=== PATIENT | female | born 1940 | race Caucasian/White ===

== ENCOUNTER 2016-08-23 16:28 | Emergency (ER) | payer MEDICARE, MEDICAID ==
[~2016-08-23] VITALS: Wt 64.9 kg
[~2016-08-23 16:28] MED LIST: ANTACID1 CT2 PO; ASPIRIN81 MG PO; ATIVAN1 MG PO; Bactrim Ds 8001 TAB PO; CARBAMAZEPINE200 MG PO; CEFUROXIME AXE250 MG PO; CEPHALEXIN500 M1 PO; CYMBALTA30 MG PO; DOCUSATE CALCI240 MG PO; DOXINATE PO; ERYTHROMYCIN OPH1 GM OPH; EXEL13.31 T; EXELON4.6 MG/24 T; FERROUS SULFAT325 M1 PO; FORTICAL200 IU/ACT NS; LEVOTHYROXIN0.075 MG PO; NAMENDA XR28 MG PO; NAMENDA10 MG PO; NATURAL TEARS OU; NEUDEXT PO; NUEDEXTA PO; OCUFLOX 0.3% 5 M5 ML OP; OYSTER CALCIUM1 TA3 PO; SYNTHROID25 MCG PO; TOBRADEX 0.3-0.15 ML OPH; VITAMIN B121000 MC2 PO; VITAMIN D5000 UNIT PO; ZYPREXA2.5 MG PO; ZYPREXA5 MG PO
[2016-08-23 17:34] LABS: BASO % 0.2 % (0.0-1.0); EOS # 0.2 10*3/uL (0.0-0.4); EOS % 2.7 % (1.0-4.0); HEMATOCRIT 35.4 % (37.0-47.0); HEMOGLOBIN 11.2 g/dl (12.0-16.0); LYMPH # 1.6 10*3/uL (1.3-4.4); LYMPH % 19.5 % (27.0-41.0); MEAN CELL VOLUME 98.6 fl (81.0-99.0); MEAN CORPUSCULAR HGB 31.2 pg (27.0-31.0); MEAN CORPUSCULAR HGB CONC 31.6 g/dl (33.0-37.0); MEAN PLATELET VOLUME 9.2 fl (9.6-12.3); MONO # 0.8 10*3/uL (0.1-1.0); MONO % 9.6 % (3.0-9.0); NEUT # 5.7 10*3/uL (2.3-7.9); NEUT % 67.6 % (47.0-73.0); PLATELET COUNT AUTOMATED 304 10*3/uL (130-400); RED BLOOD COUNT 3.59 10*6/uL (4.10-5.10); RED CELL DISTRI WIDTH 13.9 % (0-14.5); WHITE BLOOD COUNT 8.4 10*3/uL (4.8-10.8)
[2016-08-23 17:50] LABS: ALBUMIN 3.1 gm/dl (3.1-4.5); ALKALINE PHOSPHATASE 81 U/L (45-117); BILIRUBIN, TOTAL 0.3 mg/dl (0.2-1.0); BUN 32 mg/dl (7-24); CARBON DIOXIDE 28 mmol/L (21-32); CHLORIDE 105 mmol/L (98-107); EST GLOM FILT AFRICAN AMERICAN > 60 ml/min; GLUCOSE 97 mg/dL (65-99); POTASSIUM 4.7 mmol/L (3.5-5.1); SGOT/AST 30 IU/L (3-35); SGPT/ALT 42 U/L (12-78); SODIUM 138 mmol/L (136-145); TOTAL PROTEIN 8.4 gm/dL (6.4-8.2)
[2016-08-23 19:14] LABS: BILIRUBIN NEGATIVE (NEGATIVE); BLOOD TRACE-INTACT (NEGATIVE); CLARITY CLEAR (CLEAR); COLOR YELLOW (YELLOW); GLUCOSE NEGATIVE (NEGATIVE); KETONE NEGATIVE (NEGATIVE); LEUKO ESTERASE NEGATIVE (NEGATIVE); NITRITE NEGATIVE (NEGATIVE); PH 6.5 (5.0-9.0); PROTEIN TRACE (NEGATIVE); UROBILINOGEN 0.2 E.U./dl (0.2-1.0)
[2016-08-23 19:32] LABS: BACTERIA TRACE; URINE REFLEX COMMENT NO (NO); WBC 0-2 wbc/hpf (0-5)
== END 2016-08-23 20:06 | disposition home or self-care (01) ==
LOC: ED 16:28
PROVIDERS: Registered Nurse
DX: R41.82 Altered mental status, unspecified (principal); F03.90 Unspecified dementia, unspecified severity, without behavioral disturbance, psychotic disturbance, mood disturbance, and anxiety; Z87.891 Personal history of nicotine dependence; Z90.710 Acquired absence of both cervix and uterus; Z90.49 Acquired absence of other specified parts of digestive tract; Z79.899 Other long term (current) drug therapy

== ENCOUNTER → 2016-09-17 | Outpatient (CLI) | payer MEDICARE, MEDICAID ==
--- NOTE | ~2016-09-17 | WRIGHTHP ---
[place], [place] PATIENT HISTORY AND PHYSICAL EXAM NAME: ANATOLIY BAKER [facility] #: [id number] UNIT #: [id number] ROOM: DOCTOR: CAMILA GrandaTRI BIRTHDATE: [birth year] DOS: 09/17/2016 CHIEF COMPLAINT: Ulcer of the left heel. HISTORY OF PRESENT ILLNESS: This is a 76-year-old female with a history of dementia who comes from home, she is brought in by her daughters who noticed a blister on her left heel present about 2 weeks ago, she then noticed after she got out of bed and it had actually opened up and broken since then, her daughter is a nurse's aide and has already trying to prop up her legs in order to keep her heels floated at this time. She offers no other specific complaints regarding the wound. There is no history of vascular disease of the legs that they are aware of. PAST MEDICAL HISTORY: Intracranial hemorrhage, hypothyroidism, Alzheimer's dementia, history of depression, frequent urinary tract infections, multiple TIAs, old strokes. PAST SURGICAL HISTORY: She is status post hysterectomy, bilateral cataract extractions, bilateral leg biopsy, brain bleed, old strokes 2013, history of Staph, lethargy. SOCIAL HISTORY: She is a former smoker, quit 30 years ago and is and is now being cared for by her family. She does not ambulate on her own. FAMILY HISTORY: Positive for heart disease in her mother and stroke in her father and mother. ALLERGIES: No known drug allergies. MEDICATIONS: As follows: Colace 100 mg as needed daily, erythromycin topical ointment b.i.d., low dose aspirin 81 daily, Synthroid 50 mcg daily and vitamin D3 of 2000 unit tablets twice a day. PHYSICAL EXAMINATION: GENERAL: This is an elderly female who is nonverbal and in no acute distress. VITAL SIGNS: Stable. Temperature is 97.7, pulse is 94, respirations are 20, and blood pressure is 138/88. She is in no acute distress, slightly pale to examination. NECK: There is no JVD. LUNGS: Clear to auscultation anteriorly. CARDIOVASCULAR: S1, S2 regular rate and rhythm. Systolic murmur appreciable. ABDOMEN: Soft. EXTREMITIES: She has trace edema bilaterally. VASCULAR: Her pedal pulses are palpable. She has got good capillary refill. Her toes are warm. She has a wound located on the left heel that is measuring 2 cm x 2 cm x 0.1 cm. Her KAZ was 0.94 on the left and 1 on the right. As far as her wound goes it is clean and it is a stage 2 open ulcer of the left heel and there is no necrotic tissue present. No debridement was done. ASSESSMENT AND PLAN: Stage 2 pressure ulcer of the left heel, we will use [place], [place] PATIENT HISTORY AND PHYSICAL EXAM NAME: ANATOLIY BAKER UNIT #: [id number] ROOM: DOCTOR: CAMILA Granda,TRI BIRTHDATE: [birth year] Puracol and a foam bandage and have her change it every other day. She is to follow up in the Wound Clinic in 1 week. We will encourage offloading and her daughter already seems to be aware of the fact that she should not have any pressure on this wound and a heel lift boot will be given to the patient, follow up in one week. TRI JENSEN MD CM:HISPHYS:PATIENT HISTORY AND PHYSICAL EXAMINATION [id number] TRI JENSEN M.D. 09/18/16 1022 interface
== END ==
LOC: WOUNDCARE 02:07
DX: L89.622 Pressure ulcer of left heel, stage 2 (principal); E03.9 Hypothyroidism, unspecified; Z86.73 Personal history of transient ischemic attack (TIA), and cerebral infarction without residual deficits; Z87.891 Personal history of nicotine dependence; Z90.710 Acquired absence of both cervix and uterus

== ENCOUNTER → 2016-09-24 | Outpatient (CLI) | payer MEDICARE, MEDICAID ==
--- NOTE | ~2016-09-24 | PR ---
[place], [place] PROGRESS NOTE NAME: URBANOEDYTABURGESSANATOLIY UNIT #: [id number] ROOM: DOCTOR: TRI JENSEN M.D. BIRTHDATE: [birth year] DOS: 09/24/2016 ROUTINE WOUND CARE FOLLOWUP SUBJECTIVE: The patient was seen last week for a stage 2 pressure ulcer of the left heel. CHIEF COMPLAINT: Ulcer of the left heel. HISTORY OF PRESENT ILLNESS: A 76-year-old female with a history of dementia, lives at home, has had a wound present for 3 weeks now. She is fairly debilitated. The family reports no specific complaints. They were using a heel lift to try to help alleviate some of the pressure. However, it did cause a small blistered area on the medial ankle that they noticed. It has not broken open yet and it is just filled with some clear serous fluid. There is no sign of infection. OBJECTIVE: VITAL SIGNS: Stable. Temperature is 97.7, pulse is 92, respirations 20, blood pressure is 126/80. EXTREMITIES: The wound is measuring smaller at 1.3 x 0.6 x 0.1, it is clean. It is epithelializing. There is no necrotic tissue present. No debridement was done. There is a very small intact blister on the medial ankle that is approximately 0.4 cm in length x 1 cm in width. It is not open, it is filled with clear serous fluid. This was not broken. ASSESSMENT AND PLAN: Stage 2 pressure ulcer of the left heel. It is definitely improving with the current dressing which is collagen and a foam. We will discontinue the use of the heel device as it is causing new areas of concern, so we do not want them to use that, just to use pillows to keep the heel floated for now. Followup is in 2 weeks. The family does have a difficult time trying to get their mother here for wound care appointment. The wound and there is no sign of infection so she can come back in 2 weeks rather than 1 week. [place], [place] PROGRESS NOTE NAME: URBANOANATOLIY GARCIAS UNIT #: [id number] ROOM: DOCTOR: TRI JENSEN M.D. BIRTHDATE: [birth year] TRI JENSEN MD CM:JAYSHREE [id number] TRI JENSEN M.D. 09/25/16 0944 interface
== END ==
LOC: WOUNDCARE 00:53
DX: L89.622 Pressure ulcer of left heel, stage 2 (principal); F03.90 Unspecified dementia, unspecified severity, without behavioral disturbance, psychotic disturbance, mood disturbance, and anxiety

== ENCOUNTER → 2016-10-08 | Outpatient (CLI) | payer MEDICARE, MEDICAID ==
--- NOTE | ~2016-10-08 | PR ---
[place], [place] PROGRESS NOTE [id number] UNIT #: [id number] ROOM: DOCTOR: TRI JENSEN M.D. BIRTHDATE: [birth year] DOS: 10/08/2016 CHIEF COMPLAINT: Heel ulcer. HISTORY OF PRESENT ILLNESS: This is a 76-year-old female who has been having a wound on her left heel for a few weeks. It is a stage 2 pressure ulcer. The patient is fairly debilitated, is completely dependent on all ADLs by her family who takes care of her. They brought her in today for followup wound care visit. It looks like the wound is healed. Last time she was here, she had a small blister that was felt to be started by the heel device that she was using, so we discontinued the heel offloading device, so we did not want to cause any new issues, but that area also seems to be healing nicely and healed. No other specific complaints are noted. OBJECTIVE: VITAL SIGNS: Stable. Temperature is 98.1, pulse of 90, respirations 20, blood pressure is 128/82. WOUND EXAM: The wound appears healed. There is no open area. No signs of cellulitis and no tenderness. ASSESSMENT AND PLAN: Stage 2 pressure ulcer, which is healed, we will discharge the patient from the Wound Clinic. We advised to continue to offload and to keep the heel moist and moisturized with Aquaphor as needed. TRI JESNEN MD CM:PNTRANS [phone] TRI JENSEN M.D. 10/09/16 0025 interface
== END ==
LOC: WOUNDCARE 03:37
DX: L89.622 Pressure ulcer of left heel, stage 2 (principal); F03.90 Unspecified dementia, unspecified severity, without behavioral disturbance, psychotic disturbance, mood disturbance, and anxiety

== ENCOUNTER → 2017-06-22 | Outpatient (CLI) | payer MEDICARE, MEDICAID | END | disposition home or self-care (01) | LOC: RAD 12:16 | DX: R05 Cough (principal); R09.89 Other specified symptoms and signs involving the circulatory and respiratory systems; R50.9 Fever, unspecified; R11.2 Nausea with vomiting, unspecified ==

== ENCOUNTER 2017-12-04 10:46 | Inpatient (IN) | payer MEDICARE ==
[~2017-12-04] VITALS: Ht 165.1 cm; Wt 76.8 kg
--- NOTE | ~2017-12-04 | EKG ---
[place], [place] ELECTROCARDIOGRAM REPORT NAME: ANATOLIY BAKER UNIT #: [id number] ROOM: [id number] DOCTOR: STEFFI DRAFT REPORT BIRTHDATE: [address] [facility] Test Date: 2017-12-04 Test Time: 11:37:40 Pat Name: ANATOLIY BAKER Department: Room: Gender: F French Comber: ALEJA : 1940 Requested By: KIMBERLEY GERBER Order Number: [id number] Reading MD: Mica Nettles MD Measurements Intervals [place] Rate: 74 P: 23 CA: 155 QRS: -41 QRSD: 147 T: 46 QT: 424 QTc: 471 Interpretive Statements Sinus rhythm RBBB and LAFB Left ventricular hypertrophy Lateral infarct, age indeterminate Abnormal EKG. Electronically Signed On 12-05-2017 16:07:05 PDT by Mica Nettles MD CM:EKGRPT:ELECTROCARDIOGRAM REPORT [id number] KIMBERLEY BOURGEOIS DRAFT REPORT KIMBERLEY GERBER DO
[2017-12-04 10:58] VITALS: BP 122/80
[2017-12-04 11:35] LABS: BASO % 0.3 % (0.0-1.0); EOS # 0.2 10*3/uL (0.0-0.4); EOS % 2.2 % (1.0-4.0); HEMATOCRIT 35.9 % (37.0-47.0); HEMOGLOBIN 11.5 g/dl (12.0-16.0); LYMPH # 1.6 10*3/uL (1.3-4.4); LYMPH % 17.3 % (27.0-41.0); MEAN CELL VOLUME 98.4 fl (81.0-99.0); MEAN CORPUSCULAR HGB 31.5 pg (27.0-31.0); MEAN PLATELET VOLUME 9.2 fl (9.6-12.3); MONO # 0.9 10*3/uL (0.1-1.0); MONO % 9.3 % (3.0-9.0); NEUT # 6.7 10*3/uL (2.3-7.9); NEUT % 70.5 % (47.0-73.0); PLATELET COUNT AUTOMATED 266 10*3/uL (130-400); RED BLOOD COUNT 3.65 10*6/uL (4.10-5.10); WHITE BLOOD COUNT 9.5 10*3/uL (4.8-10.8)
[2017-12-04 11:44] LABS: ACT PARTIAL THROMBO TIME 21.7 SECONDS (20.8-31.5); INTERNATIONAL NORM RATIO 0.9 (2.0-3.5)
[2017-12-04 11:52] LABS: ALBUMIN 3.2 gm/dl (3.1-4.5); ALKALINE PHOSPHATASE 95 U/L (45-117); BUN 28 mg/dl (7-24); CHLORIDE 105 mmol/L (98-107); CREATININE 0.85 mg/dL (0.55-1.02); LIPASE 394 U/L (73-393); SGOT/AST 35 IU/L (3-35); SGPT/ALT 38 U/L (12-78); SODIUM 138 mmol/L (136-145); TOTAL PROTEIN 8.8 gm/dL (6.4-8.2)
[2017-12-04 11:53] LABS: TROPONIN I < 0.015 ng/ml (<0.045)
[2017-12-04 12:15] LABS: BILIRUBIN NEGATIVE (NEGATIVE); BLOOD 1+ (NEGATIVE); CLARITY CLOUDY (CLEAR); COLOR YELLOW (YELLOW); GLUCOSE NEGATIVE (NEGATIVE); KETONE NEGATIVE (NEGATIVE); LEUKO ESTERASE 3+ (NEGATIVE); NITRITE POSITIVE (NEGATIVE)
[2017-12-04 12:32] LABS: BACTERIA 4+; WBC TNTC wbc/hpf (0-5)
[2017-12-04 13:35] VITALS: BP 154/58
[2017-12-04 16:00] VITALS: BP 153/65
[2017-12-04] MEDS ORDERED: CROMOLYN SODIUM10 ML OPH (18:01)
[2017-12-04] MEDS ORDERED: ASPIRIN ADULT L81 M1 PO (18:09)
[2017-12-04] MEDS ORDERED: COLACE100 MG PO (18:17)
[2017-12-04 20:00] VITALS: BP 119/42
[2017-12-05] VITALS: BP 130/78
[2017-12-05 07:22] LABS: BASO % 0.2 % (0.0-1.0); EOS # 0.2 10*3/uL (0.0-0.4); EOS % 1.7 % (1.0-4.0); HEMATOCRIT 35.5 % (37.0-47.0); HEMOGLOBIN 11.2 g/dl (12.0-16.0); LYMPH # 1.1 10*3/uL (1.3-4.4); LYMPH % 11.1 % (27.0-41.0); MEAN CELL VOLUME 98.3 fl (81.0-99.0); MEAN CORPUSCULAR HGB CONC 31.5 g/dl (33.0-37.0); MEAN PLATELET VOLUME 9.4 fl (9.6-12.3); MONO # 0.8 10*3/uL (0.1-1.0); MONO % 8.7 % (3.0-9.0); NEUT # 7.4 10*3/uL (2.3-7.9); NEUT % 78.1 % (47.0-73.0); PLATELET COUNT AUTOMATED 270 10*3/uL (130-400); RED BLOOD COUNT 3.61 10*6/uL (4.10-5.10); RED CELL DISTRI WIDTH 13.6 % (0-14.5); WHITE BLOOD COUNT 9.5 10*3/uL (4.8-10.8)
[2017-12-05 07:40] LABS: ALBUMIN 2.9 gm/dl (3.1-4.5); ALKALINE PHOSPHATASE 92 U/L (45-117); CHLORIDE 109 mmol/L (98-107); CHOLESTEROL 190 mg/dL (<200); CREATININE 0.64 mg/dL (0.55-1.02); FREE T4 1.01 ng/dl (0.76-1.46); HDL CHOLESTEROL 49 mg/dl (40-60); LDL CHOLESTEROL 126 mg/dL (9-159); PHOSPHOROUS 2.9 mg/dL (2.5-4.9); POTASSIUM 4.1 mmol/L (3.5-5.1); SGOT/AST 35 IU/L (3-35); SGPT/ALT 37 U/L (12-78); SODIUM 139 mmol/L (136-145); TOTAL PROTEIN 8.1 gm/dL (6.4-8.2); TRIGLYCERIDES 77 mg/dl (<150); VLDL CHOLESTEROL 15 mg/dL (6-40)
[2017-12-05 07:46] LABS: BUN 18 mg/dl (7-24)
[2017-12-05 08:00] VITALS: BP 156/77
[2017-12-05 08:33] LABS: VITAMIN D, 25-HYDROXY 39.6 ng/mL (30-100)
[2017-12-05 12:00] VITALS: BP 125/52
[2017-12-05 16:00] VITALS: BP 152/63
[2017-12-05 20:00] VITALS: BP 106/55
[2017-12-06] VITALS: BP 168/80
[2017-12-06 06:12] LABS: BASO % 0.3 % (0.0-1.0); EOS # 0.2 10*3/uL (0.0-0.4); EOS % 2.2 % (1.0-4.0); HEMATOCRIT 31.1 % (37.0-47.0); LYMPH # 1.2 10*3/uL (1.3-4.4); LYMPH % 13.1 % (27.0-41.0); MEAN CELL VOLUME 97.8 fl (81.0-99.0); MEAN CORPUSCULAR HGB 31.4 pg (27.0-31.0); MEAN CORPUSCULAR HGB CONC 32.2 g/dl (33.0-37.0); MEAN PLATELET VOLUME 9.3 fl (9.6-12.3); MONO # 0.9 10*3/uL (0.1-1.0); MONO % 10.1 % (3.0-9.0); NEUT # 6.9 10*3/uL (2.3-7.9); PLATELET COUNT AUTOMATED 236 10*3/uL (130-400); RED BLOOD COUNT 3.18 10*6/uL (4.10-5.10); RED CELL DISTRI WIDTH 13.8 % (0-14.5); WHITE BLOOD COUNT 9.3 10*3/uL (4.8-10.8)
[2017-12-06 06:32] LABS: BUN 24 mg/dl (7-24); CHLORIDE 109 mmol/L (98-107); CREATININE 0.73 mg/dL (0.55-1.02); POTASSIUM 3.8 mmol/L (3.5-5.1); SODIUM 142 mmol/L (136-145)
[2017-12-06 08:00] VITALS: BP 146/69
[2017-12-06 12:00] VITALS: BP 134/50
[2017-12-06 12:30] VITALS: BP 118/68
[2017-12-06 16:00] VITALS: BP 137/64
[2017-12-06 20:00] VITALS: BP 120/60
[2017-12-07] VITALS: BP 130/60
[2017-12-07 08:00] VITALS: BP 153/64
[2017-12-07 12:00] VITALS: BP 157/67
[2017-12-07 16:00] VITALS: BP 130/55
[2017-12-07 20:00] VITALS: BP 129/55
[2017-12-08] VITALS: BP 123/97
[2017-12-08 08:00] VITALS: BP 158/75
== END 2017-12-08 13:47 | disposition home or self-care (01) | DRG 689 ==
LOC: ED 10:46 → EDHOLD 12:50 → 5E 12:50
PROVIDERS: Emergency Medicine; Family Medicine; Registered Nurse
DX: N30.00 Acute cystitis without hematuria (principal); G93.41 Metabolic encephalopathy; E44.0 Moderate protein-calorie malnutrition; E86.0 Dehydration; G30.9 Alzheimer's disease, unspecified; F02.80 Dementia in other diseases classified elsewhere, unspecified severity, without behavioral disturbance, psychotic disturbance, mood disturbance, and anxiety; Z66 Do not resuscitate; Z51.5 Encounter for palliative care; M79.7 Fibromyalgia; E83.41 Hypermagnesemia; E03.9 Hypothyroidism, unspecified; Z68.28 Body mass index [BMI] 28.0-28.9, adult; Z86.73 Personal history of transient ischemic attack (TIA), and cerebral infarction without residual deficits; Z87.891 Personal history of nicotine dependence; Z90.49 Acquired absence of other specified parts of digestive tract; Z90.710 Acquired absence of both cervix and uterus; Z79.82 Long term (current) use of aspirin; Z79.899 Other long term (current) drug therapy; Z82.3 Family history of stroke; Z82.49 Family history of ischemic heart disease and other diseases of the circulatory system

== ENCOUNTER → 2018-11-28 | Outpatient (CLI) | payer OTHER ==
[~2018-11-28] MED LIST changes: +AMOXICILLIN500 M2 PO; +ASPIRIN ADULT L81 M1 PO; +ASPIRIN CHEWABL81 MG PO; +B COMPLEX1 EACH PO; +COLACE100 MG PO; +CROMOLYN SODIUM OP; +CROMOLYN SODIUM10 ML OPH; +VITAMIN D-32000 UNI1 PO
== END | disposition home or self-care (01) ==
LOC: RAD 09:45
DX: J98.11 Atelectasis (principal); J18.9 Pneumonia, unspecified organism